=== PATIENT | female | born 1990 | race Caucasian/White ===

== ENCOUNTER 2018-02-08 15:47 | Emergency (ER) | payer MEDICAID ==
[2018-02-08 15:47] VITALS: BMI 20.9
[2018-02-08 17:31] LABS: BASO % 0.3 % (0.0-2.0); EOS # 0.1 K/uL (0.0-0.7); EOS % 0.9 % (0.0-4.0); LYMPH # 1.8 K/uL (1.0-4.3); LYMPH % 20.3 % (20.0-40.0); MEAN CELL VOLUME 87.2 fl (81.0-99.0); MEAN CORPUSCULAR HEMOGLOBIN 29.4 pg (27.0-31.0); MEAN CORPUSCULAR HGB CONC 33.8 g/dL (33.0-37.0); MEAN PLATELET VOLUME 11.5 fl (7.2-11.7); MONO # 0.6 K/uL (0.0-0.8); MONO % 6.5 % (0.0-10.0); NEUT # 6.4 K/uL (1.8-7.0); RBC 4.42 Mil/uL (3.80-5.20); WHITE BLOOD COUNT 8.9 K/uL (4.8-10.8)
--- NOTE | 2018-02-08 17:35 | ED PDOC ---
HPI: General Adult Time Seen by Provider: 02/08/18 16:17 Chief Complaint (Nursing): Headache Chief Complaint (Provider): Headache History Per: Patient History/Exam Limitations: no limitations Onset/Duration Of Symptoms: Days (x4) Current Symptoms Are (Timing): Still Present Additional Complaint(s): 27 year old female (A1) with a history of htn and pre-htn before presents to the ED with a mild headache with no sudden onset that has been going on for 4 days. Patient states she has intermittent headaches during for which she has been taking nifedipine. She recently ran out of medication and has no refills which caused headache to worsen. Patient has a diffuse headache associated with dizziness sometimes. She had an episode when she had color flashes in right eye that lasted for a couple of seconds with numbness and tingling on the bottom of her feet last night. Patient further reports some mild contractions but denies vaginal bleeding, chest pain, syncope or any other medical complaints. PMD: [facility] Past Medical History Reviewed: Historical Data Vital Signs: Last Vital Signs Temp 98.7 F 02/08/18 16:23 Pulse 85 02/08/18 16:23 Resp 17 02/08/18 16:23 BP 127/85 02/08/18 17:11 Pulse Ox 100 02/08/18 16:23 - Medical History PMH: Depression, HTN Denies: HIV, Seizures, Sexually Transmitted Disease - Surgical History Surgical History: Denies: Other surgeries: ovarian cyst surgery - Family History Family History: States: Unknown Family Hx - Immunization History Hx Tetanus Toxoid Vaccination: No Hx Influenza Vaccination: No Hx Pneumococcal Vaccination: No - Home Medications Home Medications: Ambulatory Orders Medication Instructions Recorded Nifedipine [Procardia Xl] 30 mg PO DAILY 12/25/17 Multivit/Folic Acid/I 1 tab PO DAILY 12/25/17 [ Plus] Nifedipine [Procardia Xl] 1 tab PO DAILY #14 tab 02/08/18 - Allergies Allergies/Adverse Reactions: Allergies Allergy/AdvReac Type Severity Reaction Status Date / Time No Known Allergies Allergy Verified 02/08/18 16:16 Review of Systems ROS Statement: Except As Marked, All Systems Reviewed And Found Negative Cardiovascular: Negative for: Chest Pain Genitourinary Female: Positive for: Other (mild contractions). Negative for: Vaginal Bleeding Neurological: Positive for: Numbness (and tingling on bottom of feet), Headache, Dizziness Physical Exam - Reviewed Nursing Documentation Reviewed: Yes Vital Signs Reviewed: Yes - Physical Exam Appears: Positive for: Non-toxic, No Acute Distress Head Exam: Positive for: ATRAUMATIC, NORMOCEPHALIC Skin: Positive for: Normal Color, Warm, Dry Eye Exam: Positive for: Normal appearance, EOMI, PERRL Neck: Positive for: Normal Cardiovascular/Chest: Positive for: Regular Rate, Rhythm. Negative for: Murmur Respiratory: Positive for: Normal Breath Sounds. Negative for: Respiratory Distress Gastrointestinal/Abdominal: Positive for: Normal Exam, Soft. Negative for: Tenderness Back: Positive for: Normal Inspection Extremity: Positive for: Normal ROM. Negative for: Pedal Edema, Deformity Neurologic/Psych: Positive for: Alert, Oriented (x3) - Laboratory Results Result Diagrams: 02/08/18 17:24 02/08/18 17:24 - ECG O2 Sat by Pulse Oximetry: 100 (RA) Pulse Ox Interpretation: Normal Medical Decision Making Medical Decision Making: Time: 1651 Initial Impression: Headache and htn in Differential diagnoses include but are not limited to: Preeclampsia, pituitary apoplexy, or central venous thrombosis Initial Plan: --EKG --CMP --Magnesium --Uric acid --CBC with differentials --MRI brain without contrast --Apresoline 10 mg IV --Urinalysis --OB Time: 1719 --Blood pressure is WNL in ED at 127/85. Scribe Attestation: Documented by Katie Win, acting as a scribe for Lona Fung MD Provider Scribe Attestation: All medical record entries made by the Scribe were at my direction and personally dictated by me. I have reviewed the chart and agree that the record accurately reflects my personal performance of the history, physical exam, medical decision making, and the department course for this patient. I have also personally directed, reviewed, and agree with the discharge instructions and disposition. Disposition - Clinical Impression Clinical Impression: Headache, Hypertension affecting - Patient ED Disposition Is Patient to be Admitted: No Doctor Will See Patient In The: Office Counseled Patient/Family Regarding: Studies Performed, Diagnosis, Need For Followup - Disposition Disposition: Routine/Home Disposition Time: 19:00 Condition: STABLE Additional Instructions: follow up with your primary doctor in 1-2 days return to the ED with any worsening or concerning symptoms Prescriptions: Nifedipine [Procardia Xl] 1 tab PO DAILY #14 tab Instructions: Headache, Adult (DC) Patient Signed Over To: Eli Skaggs
[2018-02-08 17:42] LABS: ALBUMIN 3.8 g/dL (3.5-5.0); ALT/SGPT 15 U/L (9-52); AST/SGOT 17 U/L (14-36); BLOOD UREA NITROGEN 8 mg/dl (7-17); CALCIUM 9.1 mg/dL (8.4-10.2); GFR NON-AFRICAN AMERICAN > 60
[2018-02-08 18:25] LABS: SQUAMOUS EPITHIAL 2 /hpf (0-5); URINE BACTERIA RARE (<OCC); URINE BILIRUBIN NEGATIVE (NEGATIVE); URINE BLOOD NEGATIVE (NEGATIVE); URINE CLARITY SLIGHTY-CLOUDY (Clear); URINE COLOR YELLOW (YELLOW); URINE GLUCOSE (UA) NEG (Normal); URINE LEUKOCYTE ESTERASE TRACE Leu/uL (Negative); URINE PROTEIN NEGATIVE (NEGATIVE); URINE UROBILINOGEN 0.2-1.0 mg/dL (0.2-1.0)
--- NOTE | 2018-02-08 19:52 | ED PDOC ---
- Laboratory Results Result Diagrams: 02/08/18 17:24 02/08/18 17:24 - ECG O2 Sat by Pulse Oximetry: 100 (RA) Pulse Ox Interpretation: Normal Medical Decision Making Medical Decision Making: Time: 1899 --Patient signed out to this provider by Dr. Fung, pending imaging. If all negative, patient can go home with a prescription for nifedipine Time: 2037 --As per USRads, the Brain MRI is unremarkable. Time: 2057 US OB Impression: 1. Single, live, intrauterine gestation with a composite gestational age of 16 weeks 4 days. 2. Estimated date of delivery is 07/27/2018. pt aware of results, feels fine at this time given rx told to follow up with outpt md. Scribe Attestation: Documented by Katie Win, acting as a scribe for Eli Skaggs MD Provider Scribe Attestation: All medical record entries made by the Scribe were at my direction and personally dictated by me. I have reviewed the chart and agree that the record accurately reflects my personal performance of the history, physical exam, medical decision making, and the department course for this patient. I have also personally directed, reviewed, and agree with the discharge instructions and disposition. Disposition - Clinical Impression Clinical Impression: Headache, Hypertension affecting - POA Present On Arrival: None - Disposition Disposition: Routine/Home Disposition Time: 21:00 Condition: IMPROVED Additional Instructions: follow up with your primary doctor in 1-2 days return to the ED with any worsening or concerning symptoms Prescriptions: Nifedipine [Procardia Xl] 1 tab PO DAILY #14 tab Instructions: Headache, Adult (DC)
[2018-02-08 21:25] VITALS: BP 132/67; PULSE 70; RESP 18; TEMP 98.5
--- NOTE | 2018-02-09 07:01 | CARD ---
APPROVED REPORT Date of service: 02/08/2018 EKG Measurement Heart [id number] ID [id number] <Conclusion> Normal sinus rhythm Normal ECG
--- NOTE | 2018-02-09 11:43 | US ---
Date of service: 02/08/2018 PROCEDURE: Limited ultrasound HISTORY: contractions hypertension COMPARISON: None TECHNIQUE: Standard protocol for this study/examination. FINDINGS: Breech presentation. Anterior placenta. No evidence of abruption or previa Gestational age derived from LMP 16 weeks 1 day. FATIMAH 07/25/2018. Gestational age derived from the following biometric parameters 16 weeks 4 days. FATIMAH 07/22/2018. Biparietal diameter 3.52 cm Head circumference 12.94 cm Abdominal circumference 10.24 cm Femur length 2.18 cm Estimated weight 155.8 g Calculated cardiac rate 161 beats per min. Closed cervix measuring 0.51 cm IMPRESSION: 16 weeks 4 days live intrauterine gestation. Concordant results (preliminary interpretation) provided by JOHNSON CLEARY. Procedure Completed: 18:40. Preliminary Report: Dictated and Authenticated: 20:58. Final Interpretation: 11:31. February 09, 2018
--- NOTE | 2018-02-09 12:30 | MRI ---
Date of service: 02/08/2018 PROCEDURE: MRI BRAIN WITHOUT CONTRAST HISTORY: headache COMPARISON: None available. TECHNIQUE: Multiplanar, multisequence MR images of the brain were obtained without intravenous contrast enhancement. FINDINGS: HEMORRHAGE: None DWI: No evidence of an acute or early subacute infarction. BRAIN PARENCHYMA: Intrinsic signal throughout the woods and white matter structures above below the tentorium appears within normal limits including the brainstem. There is no mass effect, parenchymal edema or loss of the corticomedullary differentiation. Midline brain anatomy appears within normal limits including the corpus callosum, brainstem and craniocervical junction. There is no suspicious extra-axial fluid collection identified. VENTRICLES: Unremarkable. No hydrocephalus. CRANIUM: Unremarkable. ORBITS: Grossly unremarkable. PARANASAL SINUSES/MASTOIDS: Clear VASCULAR SYSTEM: Skull base flow voids intact. OTHER FINDINGS: None. IMPRESSION: Unremarkable non contrast enhanced MRI of the brain.
[2018-02-09 17:24] VITALS: O2SAT 100
== END 2018-02-08 21:16 | disposition home or self-care (01) ==
LOC: H.ER 15:47
DX: R51 Headache (principal); O16.2 Unspecified maternal hypertension, second trimester; Z3A.16 16 weeks gestation of pregnancy

== ENCOUNTER 2018-06-19 13:42 | Emergency (ER) | payer MEDICAID, OTHER ==
[2018-06-19 15:27] VITALS: BMI 32.3
[2018-06-19 16:37] LABS: BASO % 0.2 % (0.0-2.0); EOS % 0.6 % (0.0-4.0); HEMOGLOBIN 10.9 g/dL (12.0-16.0); LYMPH # 1.3 K/uL (1.0-4.3); LYMPH % 18.5 % (20.0-40.0); MEAN CORPUSCULAR HEMOGLOBIN 26.3 pg (27.0-31.0); MEAN CORPUSCULAR HGB CONC 32.5 g/dL (33.0-37.0); MEAN PLATELET VOLUME 11.7 fl (7.2-11.7); MONO # 0.7 K/uL (0.0-0.8); MONO % 9.5 % (0.0-10.0); NEUT % 71.2 % (50.0-75.0); NRBC % 0.2 % (0.0-0.0); RBC 4.13 Mil/uL (3.80-5.20)
[2018-06-19 16:43] LABS: PARTIAL THROMBOPLASTIN TIME 27.8 Seconds (25.6-37.1)
[2018-06-19 16:53] LABS: SQUAMOUS EPITHIAL < 1 /hpf (0-5); URINE BACTERIA RARE (<OCC); URINE BILIRUBIN NEGATIVE (NEGATIVE); URINE BLOOD SMALL (NEGATIVE); URINE CLARITY SLIGHTY-CLOUDY (Clear); URINE COLOR YELLOW (YELLOW); URINE GLUCOSE (UA) NEG (NEGATIVE); URINE LEUKOCYTE ESTERASE NEG Leu/uL (Negative); URINE PROTEIN NEGATIVE (NEGATIVE); URINE UROBILINOGEN 0.2-1.0 mg/dL (0.2-1.0)
[2018-06-19 16:59] LABS: ALBUMIN 3.7 g/dL (3.5-5.0); ALT/SGPT 49 U/L (9-52); AMYLASE 51 U/L (30-110); AST/SGOT 58 U/L (14-36); BILIRUBIN,DIRECT 0.1 mg/ml (0.0-0.4); CK-MB < 0.22 ng/mL (0.0-3.38); LIPASE 77 U/L (23-300); URIC ACID 3.9 mg/Dl (2.2-7.5)
[2018-06-19 22:47] VITALS: BP 117/78; PULSE 108; RESP 18; TEMP 97.9; O2SAT 99
--- NOTE | 2018-06-20 13:44 | OBHP ---
Datetime: 06/19/2018 15:14 IP Adm Impression: , intrauterine IP Admit Plan: Observation/Evaluation Admit Comment, IP Provider: 27 yo with IUP at 35+6 weeks EGA based on U/S presents for swell ing of all extremities, dypsnea, RUQ pain and blurry vision of 1 day duration. Not associated with an karthik or headache. Patient reports she has a history of high blood pressure early in the of which she was taking a medication only for the first 3 months. Her BP decreased back to normal and s o she was taken off of the medication. Denies vaginal bleeding, loss of fluid per the vagina and she endorses good movement. OBGYN: Dr. Mcmillan PMH: denies OBHx: 5x all births- between 34-36 weeks. Patient has been placing Progesterone weekl y since 28 weeks. Meds: PNV, Progesterone weekly Labs: unavailable Social: denies Famiyl Hx: Mother had 2 VA at the age of 40 yo and 60yo. Allergies: denies Surgical Hx: denies ROS: all other systems reviewed and negative unless noted in HPI PE: comfortable, in no acute distress Vital signs: BP: 142/85 repeated 129/87 HR 78; O2 Saturation 100% on room air. Resp: no resp distress; Clear bilaterally, no wheezes, rhonchi or crackles appreciated on exam. CV: S1, S2, RRR Abd: IUP, mild tenderness to palpation on RUQ. No rebound appreciated; +BS in all four quadrants. Ext: no edema bilateral upper and lower extremities. A+P: 27 yo with IUP at 35+6 weeks EGA based on U/S with history of HTN early in presents for swelling of all extremities, dypsnea, RUQ pain and blurry vision of 1 day duration -Continuous EFM: reassuring Category I, - continue TOCO and EFM - PIH labs, Cardic enzymes and Amylase and lipase. - No CT of the chest at this time given patient's saturation on room air is 100%. If patient desat urates, consider CT chest. Reassessed: Patient is sitting comfortably. Labs only evident of mild elevation of AST. Patient's vitals are stable and EFM tracing continues to be reactive- category 1. Patient stable for discharge at this time. She will follow up with Dr. Roland on . Case discussed with Dr Troy -Radha Estrada PGY1 Addendum: I saw and examined patient at presentation and follow-up. Patient observed at OB ED. heart tracing category 1. Patient's lab checked and discussed results with patient. Patient's vital sign s within normal limits. Patient without complaints at this time. Patient will follow up with clinic this week. Discussed plan with patient and all patient questions answered. [place] Pelvic Type - PN: Adequate Extremities - PN: Normal Abdomen - PN: Normal Back - PN: Normal Breast - PN: Not Done Lungs - PN: Normal Heart - PN: Normal Thyroid - PN: Normal Neurologic - PN: Normal HEENT - PN: Normal General - PN: Normal FHR - Baseline A Provider: 150 EGA AdmitDate IP: 35.6 Vital Signs Provider: Reviewed Vital Signs Provider Details: Hypertension IP Chief Complaint: Illness; Maternal discomfort NICHD Variability Prov Fetus A: Moderate 6-25bpm NICHD Accel Fetus A IP Provider: [id number] FHR Category Provider Fetus A: Category I Genitourinary Exam: Normal DTRs - PN: Normal
== END 2018-06-19 17:26 | disposition home or self-care (01) ==
LOC: H.EROB2 13:42
DX: O26.893 Other specified pregnancy related conditions, third trimester (principal); O16.3 Unspecified maternal hypertension, third trimester; I10 Essential (primary) hypertension; Z3A.35 35 weeks gestation of pregnancy; Z82.49 Family history of ischemic heart disease and other diseases of the circulatory system; R10.2 Pelvic and perineal pain